=== PATIENT | female | born 1980 | race Caucasian/White ===

== ENCOUNTER 2025-07-06 06:12 | Day surgery (SDC) | payer OTHER ==
[2025-07-05 13:06] VITALS: BMI 26.5
[2025-07-06] MEDS ORDERED: ONDANSETRON 4 MG/2 ML VIAL IVPUSH PRN (11:32)
[2025-07-06] MEDS ORDERED: LACTATED RINGERS SOLUTION 1,000 ML IV SCH (11:45)
[2025-07-06] MEDS ORDERED: MIDAZOLAM HCL 2 MG/2 ML SINGLE DOSE VIAL ONE (12:09)
[2025-07-06] MEDS ORDERED: PROPOFOL 20 ML ONE ×2 (12:09→12:48)
[2025-07-06] MEDS: DOXYCYCLINE HYCLATE 100 MG VIAL IVPB ONE (12:34)
[2025-07-06] MEDS ORDERED: ACETAMINOPHEN INJECTION 100 ML ONE (12:45)
[2025-07-06] MEDS ORDERED: DOXYCYCLINE HYCLATE 100 MG VIAL IVPB ONE (13:00)
[2025-07-06] MEDS ORDERED: KETOROLAC TROMETHAMINE 30 MG/1 ML VIAL ONE (13:02)
[2025-07-06 14:50] VITALS: BP 122/55; PULSE 69; RESP 20; TEMP 97.3
== END 2025-07-06 15:10 | disposition home or self-care (01) ==
LOC: EDBD → JASU-SURG 06:12
PROVIDERS: ATTEND Obstetrics & Gynecology Obstetrics
PROC: 10D17ZZ Extraction of Products of Conception, Retained, Via Natural or Artificial Opening (ICD-10-PCS; principal; 2025-07-06 11:30)
DX: O02.1 Missed abortion (principal); Z3A.12 12 weeks gestation of pregnancy
CPT/HCPCS: 86850; 86900; 86901; 94760